=== PATIENT | male | born 1970 | race Two or more races ===

== ENCOUNTER 2022-11-09 10:09 | Emergency (ER) | payer MEDICAID ==
[~2022-11-09] VITALS: Ht 175.3 cm; Wt 86.5 kg
[2022-11-09 10:10] VITALS: BP 132/75; RESP 18; O2SAT 97
[2022-11-09 10:16] VITALS: PULSE 116
[2022-11-09 10:42] LABS: Basophils # (auto) 0 10 ^3/uL (0-0.2); Basophils % (auto) 1.2 % (0.0-2.0); Eosinophils # (auto) 0.1 10 ^3/uL (0-0.8); Eosinophils % (auto) 1.9 % (0.0-7.0); Hematocrit 45.9 % (41.0-53.0); Hemoglobin 15.2 g/dL (13.5-17.5); Lymphocytes # (auto) 0.8 10 ^3/uL (0.4-5.4); Lymphocytes % (auto) 24.7 % (10.0-50.0); Mean Corpuscular Hemoglobin 30.4 pg (28.0-32.0); Mean Corpuscular Hgb Conc. 33.1 g/dL (32.0-36.0); Mean Corpuscular Volume 91.8 fL (80.0-100.0); Monocytes # (auto) 0.4 10 ^3/uL (0-1.3); Neutrophils # (auto) 1.8 10 ^3/uL (1.6-8.6); Neutrophils % (auto) 60.2 % (37.0-80.0); Nucleated Red Blood Cells % 0.1 %; White Blood Cell 3.1 10^3/uL (4.4-10.8)
[2022-11-09 10:53] LABS: Alanine Aminotransferase 43 U/L (7-40); Albumin 4.2 g/dL (3.2-4.8); Alkaline Phosphatase 83 U/L (46-116); Aspartate Aminotransferase 34 U/L (13-40); BUN/Creatinine Ratio 16.9 (10.0-20.0); Blood Urea Nitrogen 24 mg/dL (9-23); Calcium 8.9 mg/dL (8.5-10.1); Carbon Dioxide 28 mmol/L (20-30); Glucose 97 mg/dL (74-106)
[2022-11-09 10:54] LABS: Bilirubin, Total 2.7 mg/dL (0.2-1.0); Total Protein 6.8 g/dL (5.7-8.2)
[2022-11-09 11:31] LABS: Anion Gap 7 (5-15); Chloride 105 mmol/L (98-107); Sodium 140 mmol/L (136-145)
[2022-11-09 11:38] LABS: Magnesium 1.8 mg/dL (1.6-2.6)
[2022-11-09 11:43] LABS: INR 1.32 (0.9-1.15); Partial Thromboplastin Time 32.2 SEC (24.5-34.5); Prothrombin Time 13.6 sec (9.3-11.8)
[2022-11-09] MEDS ORDERED: ASPirin 81 mg TAB PO ONE (11:45)
== END 2022-11-09 11:54 | disposition left against medical advice (07) ==
LOC: ER 10:09
DX: R07.89 Other chest pain (principal); Z53.21 Procedure and treatment not carried out due to patient leaving prior to being seen by health care provider
CPT/HCPCS: 36415; 71045; 80053; 83735; 84484; 85025; 85610; 85730; 93005